=== PATIENT | female | born 1965 | race Caucasian/White ===

== ENCOUNTER → 2021-07-06 | Outpatient (CLI) | payer OTHER ==
[~2021-07-06] MED LIST: DAILY VALUE1 EAC1 PO; DULOXETINE HCL30 MG PO; MELOXICAM15 MG PO; VITAMIN A10000 UNI3 PO; VITAMIN B-121000 MC2 SUBLING; VITAMIN E1000 UNIT PO; ZINC50 M2 PO
[2021-07-06 12:49] LABS: URINE BILIRUBIN NEGATIVE (Negative); URINE BLOOD NEGATIVE (Negative); URINE CLARITY CLOUDY; URINE COLOR YELLOW; URINE GLUCOSE-RANDOM* NEGATIVE (Negative); URINE KETONES NEGATIVE (Negative); URINE LEUKOCYTES-REFLEX 3+ (Negative); URINE NITRITE-REFLEX POSITIVE (Negative); URINE PROTEIN (DIPSTICK) NEGATIVE (Negative); URINE UROBILINOGEN 0.2 E.U./dl (0.2-1.0)
[2021-07-06 12:56] LABS: HEMATOCRIT 45.4 % (37.0-47.0); HEMOGLOBIN 14.6 gm/dL (12.0-15.0); MCH 29.7 pg (26.0-34.0); MCHC 32.1 g/dL (28.0-37.0); MCV 92.5 fL (80.0-100.0); RBC 4.91 mil/uL (4.20-5.00); RDW 13.3 % (10.5-14.5); WBC 7.4 thou/uL (4.0-11.0)
[2021-07-06 13:03] LABS: APTT 32.9 Seconds (24.5-32.8); INR 0.95; PROTIME 10.4 Seconds (10.5-12.1)
[2021-07-06 13:05] LABS: ALBUMIN 3.8 g/dL (3.4-5.0); CALCIUM 9.7 mg/dL (8.5-10.1); CREATININE 0.7 mg/dL (0.6-1.0); POTASSIUM 4.2 mmol/L (3.5-5.1); TOTAL BILIRUBIN 0.2 mg/dL (0.2-1.0); TOTAL PROTEIN 7.4 g/dL (6.4-8.2)
[2021-07-06 13:24] LABS: CASTS None Seen /LPF (None Seen); SQUAMOUS >10 Many /LPF (0-3)
[2021-07-06 13:25] LABS: BACTERIA-REFLEX >30 Many /HPF (None Seen); CRYSTALS None Seen /LPF (None Seen); MUCUS 0-3 Light strn/LPF (None Seen); URINE RBC 1-2 Rare /HPF (NONE SEEN); URINE WBC-REFLEX 0-5 Rare /HPF (0-5)
--- NOTE | 2021-07-07 11:19 | EKG ---
[place] [address] [facility] [place] [address] ELECTROCARDIOGRAM REPORT Name: MICHELLE MONTANO Room #: [facility]ENTER[facility]riella[facility]#: [id number] Admission: 07/06/21 Attend Phys: Juan C Bowman, Discharge: Date of : 67 Report #: [id number] [facility] Test Date: 2021-07-06 Test Time: 12:48:45 Pat Name: MICHELLE MONTANO Department: Room: Gender: F [employer]: JIN : 1965 Requested By: Juan C Bowman Order Number: [id number] MD: Goyo Casanova Measurements Intervals [place] Rate: 67 P: 82 MI: 181 QRS: 95 QRSD: 82 T: 77 QT: 462 QTc: 488 Interpretive Statements Probable limb lead reversal Normal sinus rhythm No previous ECG available for comparison Electronically Signed On 07-07-2021 11:19:29 APPLICATIONS ADMINISTRATOR by Goyo Casanova [email or web address] <ELECTRONICALLY SIGNED> By: Goyo Casanova MD, [facility] 07/07/21 1119 1248 1248 Goyo Casanova MD, FACC /EPI
== END ==
LOC: PAC 09:42
PROVIDERS: ATTEND Specialist
DX: Z01.812 Encounter for preprocedural laboratory examination (principal); Z01.810 Encounter for preprocedural cardiovascular examination

== ENCOUNTER → 2021-07-14 | Outpatient (CLI) | payer OTHER | LOC: LAB 14:37 | PROVIDERS: ATTEND Student in an Organized Health Care Education/Training Program | DX: Z20.822 Contact with and (suspected) exposure to COVID-19 (principal) ==

== ENCOUNTER 2021-07-19 06:12 | Inpatient (IN) | payer OTHER ==
[~2021-07-19] VITALS: Ht 165.1 cm; Wt 76.7 kg
[2021-07-19 06:53] VITALS: BP 106/43
[2021-07-19 11:10] VITALS: BP 112/68
--- NOTE | 2021-07-19 11:49 | NUR ---
ASSUMED PT CARE AT 1110. PT IS ALERT & ORIENTED X4. PT HAS IV SITE ON LFA SALINE LOCKED. PT IS ON 4L NC O2. PT HAD R ANTERIOR CERVICAL DISECTOMY FUSION TODAY. PT IS A CURRENT SMOKER. FINISHED ADMISSION. PT C/O OF PAIN AND GIVEN PAIN MEDICATION PER PT REQUEST. WILL CONTINUE TO MONITOR PT. FOLLOW POC.
[2021-07-19 16:45] VITALS: BP 100/63
[2021-07-20 00:56] VITALS: BP 89/52
--- NOTE | 2021-07-20 05:18 | NUR ---
RECEIVED CARE OF THIS PATIENT AT 1900. PATIENT ALERT AND ORIENTED X4. UP TO BATHROOM WITH SBA. DRESSING ON NECK D/I. C/O PAIN, MED GIVEN. SLEPT MOST OF NIGHT.
[2021-07-20 07:06] LABS: ABSOLUTE NEUTROPHILS 6.5 thou/uL (1.4-8.2); BASOPHILS 0.4 % (0.0-2.0); EOSINOPHILS 0.2 % (0.0-3.0); HEMATOCRIT 40.2 % (37.0-47.0); HEMOGLOBIN 13.3 gm/dL (12.0-15.0); LYMPHOCYTES 20.9 % (24.0-44.0); MCH 30.8 pg (26.0-34.0); MCHC 33.1 g/dL (28.0-37.0); MONOCYTES 8.5 % (1.0-8.0); PLATELET COUNT 370 thou/uL (150-400); RBC 4.32 mil/uL (4.20-5.00); RDW 13.2 % (10.5-14.5); WBC 9.3 thou/uL (4.0-11.0)
[2021-07-20 07:21] LABS: CREATININE 0.8 mg/dL (0.6-1.0); MAGNESIUM 2.1 mg/dL (1.8-2.4); POTASSIUM 4.1 mmol/L (3.5-5.1)
[2021-07-20 08:05] VITALS: BP 105/60
--- NOTE | 2021-07-20 09:34 | NUR ---
ORDERS FOR EVAL AND TREAT. SPOKE WITH Pt WHO STATES SHE HAS ALREADY BEEN UP WITHOUT DIFFICULTY. Pt DECLINING A FORMAL P.T. EVAL BUT APPEARS SAFE FOR HOME TODAY
[2021-07-20] MEDS ORDERED: HYDROCODON-ACE1 EAC7 PO (10:17)
[2021-07-20] MEDS ORDERED: METHOCARBAMOL750 MG PO (10:17)
[2021-07-20] MEDS ORDERED: COLACE100 MG PO (10:17)
[2021-07-20 12:06] VITALS: BP 105/60
--- NOTE | 2021-07-20 13:20 | NUR ---
ASSUMED CARE OF PT AT 0700. PT CO OF SORE THROAT - DR ROCHA FOR THROAT LOZENGES. PT WAS UP WALKING AROUND IN ROOM. VITAL SIGNS WNL. IV REMOVED. PREPARED FOR DISCHARGE. NO OTHER CONCERNS.
== END 2021-07-20 13:00 | disposition home or self-care (01) | DRG 473 ==
LOC: OR → 4S 11:04 → OR 12:10 → 4S 07-20 13:00
PROVIDERS: Nurse Practitioner; ADMIT Specialist; ATTEND Specialist
DX: M50.121 Cervical disc disorder at C4-C5 level with radiculopathy (principal); G89.29 Other chronic pain; F32.9 Major depressive disorder, single episode, unspecified; Z88.6 Allergy status to analgesic agent; Z90.49 Acquired absence of other specified parts of digestive tract; Z80.8 Family history of malignant neoplasm of other organs or systems; F41.9 Anxiety disorder, unspecified; Z72.0 Tobacco use
CPT/HCPCS: 10102; 50010; 50101; 50402; 51725; 51751; 54118; 56524; 56526; 57103; 58456; 58798; 59145; 59146; 59147; 62110; 62900; 70005